=== PATIENT | female | born 1940 | race Caucasian/White ===

== ENCOUNTER 2016-07-21 07:53 | Day surgery (SDC) | payer MEDICARE ==
[2016-07-21 08:40] LABS: HEMATOCRIT 37.8 % (36.0-47.0); HGB HCT DIFFERENCE 1.2; MEAN CORPUSCULAR HEMOGLOBIN 31.1 pg (27.0-33.4); MEAN CORPUSCULAR HGB CONC 34.5 g/dL (32.0-36.0); MEAN CORPUSCULAR VOLUME 90 fl (80-97); RED BLOOD COUNT 4.19 10^6/uL (3.72-5.28); RED CELL DISTRIBUTION WIDTH 12.9 % (11.5-14.0); WHITE BLOOD COUNT 6.6 10^3/uL (4.0-10.5)
[2016-07-21] MEDS ORDERED: ONDANSETRON HCL INJ/PF 4 MG/2 ML SDV ONE (09:29)
[2016-07-21] MEDS ORDERED: NALOXONE HCL INJ/PF 0.4 MG/1 ML SDV ONE (09:29)
[2016-07-21] MEDS ORDERED: PROMETHAZINE HCL INJ 25 MG/1 ML VIAL ONE (09:29)
[2016-07-21] MEDS ORDERED: FENTANYL CITRATE INJ/PF 100 MCG/2 ML AMPUL ONE (09:30)
[2016-07-21] MEDS ORDERED: EPINEPHRINE INJ 1 MG/10 ML DISP.SYRIN ONE (09:31)
[2016-07-21] MEDS ORDERED: GLUCAGON,HUMAN RECOMB 1 MG INJ ONE (09:31)
[2016-07-21] MEDS ORDERED: FLUMAZENIL INJ 0.5 MG/5 ML VIAL IV ONE (09:31)
[2016-07-21] MEDS: MIDAZOLAM 2 MG/2 ML INJ ONE ×3 (09:42→09:55)
[2016-07-21] MEDS: FENTANYL CITRATE INJ/PF 100 MCG/2 ML AMPUL ONE ×2 (09:44→09:50)
--- NOTE | 2016-07-21 10:30 | Operative Report ---
Operative Report DATE OF SURGERY: 07/21/16 PREOPERATIVE DIAGNOSIS: Screening for colon malignancy POSTOPERATIVE DIAGNOSIS: Diverticulosis OPERATION: Colonoscopy SURGEON: HARDY VARGAS ANESTHESIA: Moderate Sedation TISSUE REMOVED OR ALTERED: None COMPLICATIONS: None ESTIMATED BLOOD LOSS: none INTRAOPERATIVE FINDINGS: Scattered rare diverticuli PROCEDURE: Informed consent was obtained. Patient was brought to the endoscopy suite and placed on the endoscopy suite table with her left side down. IV sedation with Versed and fentanyl was administered. Digital rectal exam revealed no palpable perianal masses. Endoscope was passed via the patient's anus it was fed to the cecum. Patient's sigmoid colon was markedly redundant making the procedure very difficult at this portion. She experienced the pain during this the passage of the scope and required the additional fentanyl and Versed. However by the time I reach the cecum she was very comfortable. The bowel prep was good. The visualization was good although the marked redundancy of her colon made the visualization difficult. The cecum appeared normal other than a prominent ileocecal valve. The right colon appeared normal. Transverse colon descending colon sigmoid colon and the rectum were all normal other than some scattered rare diverticuli in the sigmoid and the transverse colon. Patient tolerated procedure well with no apparent complications and was taken to the recovery area in stable condition. Recommend repeat colonoscopy in 10 years. Sooner if she has any symptoms.
--- NOTE | 2016-07-21 10:33 | PDOC DISCHARGE SUMMARY ---
Discharge Summary (SDC) - Discharge Final Diagnosis: Diverticuli of the colon. Date of Surgery: 07/21/16 Discharge Date: 07/21/16 Condition: Good Treatment or Instructions: Underwent colonoscopy. October discharge the patient home when met discharge criteria. Follow-up with me in 2 weeks. Discharge Diet: As Tolerated Discharge Activity: Activity As Tolerated Report the Following to Your Physician Immediately: Fever over 101 Degrees, Unusual Bleeding Other Items to Report to MD: severe abdominal pain
[2016-07-21 11:10] VITALS: BP 118/61
== END 2016-07-21 11:15 | disposition home or self-care (01) ==
LOC: END 07:53
PROVIDERS: ATTEND Surgery
PROC: 0DJD8ZZ Inspection of Lower Intestinal Tract, Via Natural or Artificial Opening Endoscopic (ICD-10-PCS; principal; 2016-07-21 09:30)
DX: Z12.11 Encounter for screening for malignant neoplasm of colon (principal); K57.30 Diverticulosis of large intestine without perforation or abscess without bleeding; I10 Essential (primary) hypertension; E05.90 Thyrotoxicosis, unspecified without thyrotoxic crisis or storm; I51.9 Heart disease, unspecified; G62.9 Polyneuropathy, unspecified; E89.0 Postprocedural hypothyroidism; Z79.899 Other long term (current) drug therapy; Z88.0 Allergy status to penicillin; Z85.828 Personal history of other malignant neoplasm of skin; Z87.19 Personal history of other diseases of the digestive system; Z79.1 Long term (current) use of non-steroidal anti-inflammatories (NSAID)
CPT/HCPCS: 36415; 85027; G0121; J2250; J3010; 45378; J0171; J1610; J2310; J2405; J2550; J3490

== ENCOUNTER → 2016-12-10 | Outpatient (CLI) | payer MEDICARE ==
[2016-12-10 09:24] LABS: ABSOLUTE LYMPHOCYTES (AUTO) 1.3 10^3/uL (0.5-4.7); ABSOLUTE MONOCYTES (AUTO) 0.6 10^3/uL (0.1-1.4); BASOPHILS % (AUTO) 0.4 % (0-2); HEMATOCRIT 39.1 % (36.0-47.0); HEMOGLOBIN 13.1 g/dL (12.0-15.5); HGB HCT DIFFERENCE 0.2; LYMPHOCYTES % (AUTO) 22.4 % (13-45); MEAN CORPUSCULAR HEMOGLOBIN 30.9 pg (27.0-33.4); MEAN CORPUSCULAR HGB CONC 33.6 g/dL (32.0-36.0); MEAN CORPUSCULAR VOLUME 92 fl (80-97); MONOCYTES % (AUTO) 9.6 % (3-13); RED BLOOD COUNT 4.24 10^6/uL (3.72-5.28); RED CELL DISTRIBUTION WIDTH 12.8 % (11.5-14.0); SEGMENTED NEUTROPHILS % (AUTO) 67.6 % (42-78)
[2016-12-10 09:50] LABS: ALANINE AMINOTRANSFERASE 47 U/L (9-52); ALBUMIN 4.3 g/dL (3.5-5.0); ALKALINE PHOSPHATASE 70 U/L (38-126); ANION GAP 12 (5-19); ASPARTATE AMINO TRANSFERASE 29 U/L (14-36); BILIRUBIN,DIRECT 0.4 mg/dL (0.0-0.4); BILIRUBIN,TOTAL 0.5 mg/dL (0.2-1.3); BLOOD UREA NITROGEN 20 mg/dL (7-20); CARBON DIOXIDE 28 mmol/L (22-30); CHLORIDE 100 mmol/L (98-107); CHOLESTEROL 195.06 mg/dL (0-200); Direct HDL 57 mg/dL (>40); GLUCOSE 106 mg/dL (75-110); MAGNESIUM 1.7 mg/dL (1.6-2.3); POTASSIUM 4.1 mmol/L (3.6-5.0); SODIUM 140.4 mmol/L (137-145); TOTAL PROTEIN 7.3 g/dL (6.3-8.2); TRIGLYCERIDES 174 mg/dL (<150)
[2016-12-10 10:01] LABS: DIRECT LDL 108 mg/dL (<100)
[2016-12-10 10:07] LABS: VLDL CHOLESTEROL 34.8 mg/dL (10-31)
== END ==
LOC: OD 08:44
PROVIDERS: ATTEND Internal Medicine
DX: I10 Essential (primary) hypertension (principal); E03.9 Hypothyroidism, unspecified; R53.82 Chronic fatigue, unspecified; E78.5 Hyperlipidemia, unspecified; G62.9 Polyneuropathy, unspecified
CPT/HCPCS: 36415; 80053; 80061; 83735; 84443; 85025

== ENCOUNTER → 2016-12-15 | Outpatient (CLI) | payer MEDICARE ==
--- NOTE | 2016-12-16 08:39 | WOMENS IMAGING REPORT ---
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 LIMITATIONS: None. FINDINGS: LUMBAR SPINE: The bone mineral density (BMD) measured from L1-L4 in the AP projection correlates with a T-score of -0.5, which is normal as defined by the World Health Organization. HIP: The bone mineral density (BMD) measured in the left hip correlates with a T-score of 0.0, which is no rmal as defined by the World Health Organization. IMPRESSION: 1. LUMBAR SPINE: Normal 2. HIP: Normal COMMENT: The World Health Organization defines low BMD as follows: T-score: Normal: Greater than -1.0 Osteopenia: Between -1.0 and -2.5 Osteoporosis: Less than -2.5 without fractures Established osteoporosis: Less than -2.5 with fractures In general, you may wish to consider: Diagnosis Treatment Follow-up DEXA Normal BMD Prevention 2-3 years Osteopenia Prevention/Therapy 1-2 years Osteoporosis Therapy Yearly TECHNICAL DOCUMENTATION: JOB ID: [id number] [employer]- All Rights Reserved
== END ==
LOC: WI 13:11
PROVIDERS: ATTEND Internal Medicine
DX: M81.0 Age-related osteoporosis without current pathological fracture (principal)
CPT/HCPCS: 77080

== ENCOUNTER 2018-01-28 11:38 | Emergency (ER) | payer OTHER, MEDICARE ==
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
[2018-01-28] MEDS ORDERED: ACETAMINOPHEN 325 MG TABLET PO ONE (14:26)
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
[2018-01-28] MEDS ORDERED: IBUPROFEN 800 MG TABLET PO ONE (15:59)
[2018-01-28 16:06] VITALS: BP 136/73
--- NOTE | 2018-01-29 00:09 | EKG REPORT ---
SEVERITY:- ABNORMAL ECG - SINUS RHYTHM LEFT BUNDLE BRANCH BLOCK : Confirmed by: Nita Thompson MD 29-Jan-2018 00:08:54
== END 2018-01-28 16:17 | disposition home or self-care (01) ==
LOC: ER 11:38
DX: S22.22XA Fracture of body of sternum, initial encounter for closed fracture (principal); V47.0XXA Car driver injured in collision with fixed or stationary object in nontraffic accident, initial encounter; Y92.481 Parking lot as the place of occurrence of the external cause; I44.7 Left bundle-branch block, unspecified; I10 Essential (primary) hypertension; Z88.0 Allergy status to penicillin
CPT/HCPCS: 71046; 93005; 93010; 99284

== ENCOUNTER → 2018-10-12 | Outpatient (CLI) | payer MEDICARE ==
[2018-10-12 10:26] LABS: ABSOLUTE LYMPHOCYTES (AUTO) 1.3 10^3/uL (0.5-4.7); ABSOLUTE MONOCYTES (AUTO) 0.5 10^3/uL (0.1-1.4); ABSOLUTE NEUT (AUTO) 3.4 10^3/uL (1.7-8.2); BASOPHILS % (AUTO) 0.6 % (0-2); EOSINOPHILS % (AUTO) 0.1 % (0-6); HEMATOCRIT 37.4 % (36.0-47.0); HEMOGLOBIN 13.4 g/dL (12.0-15.5); MEAN CORPUSCULAR HEMOGLOBIN 31.4 pg (27.0-33.4); MEAN CORPUSCULAR HGB CONC 35.8 g/dL (32.0-36.0); MEAN CORPUSCULAR VOLUME 88 fl (80-97); MONOCYTES % (AUTO) 9.5 % (3-13); PLATELET COUNT 237 10^3/uL (150-450); RED BLOOD COUNT 4.27 10^6/uL (3.72-5.28); RED CELL DISTRIBUTION WIDTH 12.9 % (11.5-14.0); SEGMENTED NEUTROPHILS % (AUTO) 64.8 % (42-78); TOTAL CELLS COUNTED % (AUTO) 100 %; WHITE BLOOD COUNT 5.2 10^3/uL (4.0-10.5)
[2018-10-12 11:05] LABS: ALANINE AMINOTRANSFERASE 31 U/L (9-52); ALBUMIN 4.2 g/dL (3.5-5.0); ALKALINE PHOSPHATASE 65 U/L (38-126); ANION GAP 7 (5-19); ASPARTATE AMINO TRANSFERASE 26 U/L (14-36); BILIRUBIN,DIRECT 0.2 mg/dL (0.0-0.4); BILIRUBIN,TOTAL 0.4 mg/dL (0.2-1.3); BLOOD UREA NITROGEN 17 mg/dL (7-20); CALCIUM 9.7 mg/dL (8.4-10.2); CARBON DIOXIDE 32 mmol/L (22-30); CHLORIDE 99 mmol/L (98-107); CHOLESTEROL 155.14 mg/dL (0-200); GLUCOSE 114 mg/dL (75-110); POTASSIUM 3.6 mmol/L (3.6-5.0); SODIUM 138.3 mmol/L (137-145); TOTAL PROTEIN 7.1 g/dL (6.3-8.2); TRIGLYCERIDES 194 mg/dL (<150)
[2018-10-12 11:16] LABS: DIRECT LDL 79 mg/dL (<100)
[2018-10-12 11:18] LABS: VLDL CHOLESTEROL 38.8 mg/dL (10-31)
== END ==
LOC: OD 08:45
PROVIDERS: ATTEND Internal Medicine
DX: K21.9 Gastro-esophageal reflux disease without esophagitis (principal); I10 Essential (primary) hypertension; R53.83 Other fatigue
CPT/HCPCS: 36415; 80053; 80061; 84443; 85025

== ENCOUNTER → 2018-11-29 | Outpatient (CLI) | payer MEDICARE ==
[2018-11-29 09:56] LABS: ABSOLUTE LYMPHOCYTES (AUTO) 1.4 10^3/uL (0.5-4.7); ABSOLUTE MONOCYTES (AUTO) 0.4 10^3/uL (0.1-1.4); ABSOLUTE NEUT (AUTO) 3.7 10^3/uL (1.7-8.2); BASOPHILS % (AUTO) 0.6 % (0-2); EOSINOPHILS % (AUTO) 0.1 % (0-6); HEMATOCRIT 39.2 % (36.0-47.0); HEMOGLOBIN 13.5 g/dL (12.0-15.5); LYMPHOCYTES % (AUTO) 24.7 % (13-45); MEAN CORPUSCULAR HEMOGLOBIN 30.5 pg (27.0-33.4); MEAN CORPUSCULAR HGB CONC 34.4 g/dL (32.0-36.0); MEAN CORPUSCULAR VOLUME 89 fl (80-97); MONOCYTES % (AUTO) 8.1 % (3-13); PLATELET COUNT 241 10^3/uL (150-450); RED BLOOD COUNT 4.42 10^6/uL (3.72-5.28); RED CELL DISTRIBUTION WIDTH 13.1 % (11.5-14.0); SEGMENTED NEUTROPHILS % (AUTO) 66.5 % (42-78); TOTAL CELLS COUNTED % (AUTO) 100 %; WHITE BLOOD COUNT 5.5 10^3/uL (4.0-10.5)
[2018-11-29 10:30] LABS: ALANINE AMINOTRANSFERASE 31 U/L (9-52); ALBUMIN 4.3 g/dL (3.5-5.0); ALKALINE PHOSPHATASE 68 U/L (38-126); ANION GAP 12 (5-19); ASPARTATE AMINO TRANSFERASE 27 U/L (14-36); BILIRUBIN,DIRECT 0.3 mg/dL (0.0-0.4); BILIRUBIN,TOTAL 0.5 mg/dL (0.2-1.3); BLOOD UREA NITROGEN 15 mg/dL (7-20); CALCIUM 9.8 mg/dL (8.4-10.2); CARBON DIOXIDE 32 mmol/L (22-30); CHLORIDE 96 mmol/L (98-107); CHOLESTEROL 169.77 mg/dL (0-200); GLUCOSE 109 mg/dL (75-110); POTASSIUM 3.7 mmol/L (3.6-5.0); SODIUM 140.4 mmol/L (137-145); TOTAL PROTEIN 7.1 g/dL (6.3-8.2); TRIGLYCERIDES 205 mg/dL (<150)
[2018-11-29 10:41] LABS: DIRECT LDL 88 mg/dL (<100)
== END ==
LOC: OD 08:34
PROVIDERS: ATTEND Internal Medicine
DX: K21.9 Gastro-esophageal reflux disease without esophagitis (principal); I10 Essential (primary) hypertension; R53.83 Other fatigue
CPT/HCPCS: 36415; 80053; 80061; 84443; 85025

== ENCOUNTER → 2019-01-27 | Outpatient (CLI) | payer MEDICARE | LOC: OD 08:22 | PROVIDERS: ATTEND Internal Medicine | DX: E03.9 Hypothyroidism, unspecified (principal) | CPT/HCPCS: 36415; 84443 ==

== ENCOUNTER → 2019-03-27 | Outpatient (CLI) | payer MEDICARE | LOC: OD 08:59 | PROVIDERS: ATTEND Internal Medicine | DX: E03.9 Hypothyroidism, unspecified (principal) | CPT/HCPCS: 36415; 84443 ==

== ENCOUNTER → 2019-04-26 | Outpatient (CLI) | payer MEDICARE | LOC: OD 08:21 | PROVIDERS: ATTEND Internal Medicine | DX: E03.9 Hypothyroidism, unspecified (principal) | CPT/HCPCS: 36415; 84443 ==

== ENCOUNTER → 2019-05-23 | Outpatient (CLI) | payer MEDICARE | LOC: OD 09:27 | PROVIDERS: ATTEND Internal Medicine | DX: E03.9 Hypothyroidism, unspecified (principal) | CPT/HCPCS: 36415; 84443 ==

== ENCOUNTER → 2019-12-05 | Outpatient (CLI) | payer MEDICARE ==
[2019-12-05 09:32] LABS: ABSOLUTE LYMPHOCYTES (AUTO) 1.3 10^3/uL (0.5-4.7); ABSOLUTE MONOCYTES (AUTO) 0.6 10^3/uL (0.1-1.4); ABSOLUTE NEUT (AUTO) 6.1 10^3/uL (1.7-8.2); BASOPHILS % (AUTO) 0.5 % (0-2); HEMATOCRIT 38.9 % (36.0-47.0); HEMOGLOBIN 13.5 g/dL (12.0-15.5); LYMPHOCYTES % (AUTO) 15.8 % (13-45); MEAN CORPUSCULAR HEMOGLOBIN 31.3 pg (27.0-33.4); MEAN CORPUSCULAR HGB CONC 34.8 g/dL (32.0-36.0); MEAN CORPUSCULAR VOLUME 90 fl (80-97); MONOCYTES % (AUTO) 7.8 % (3-13); PLATELET COUNT 249 10^3/uL (150-450); RED BLOOD COUNT 4.32 10^6/uL (3.72-5.28); RED CELL DISTRIBUTION WIDTH 13.2 % (11.5-14.0); SEGMENTED NEUTROPHILS % (AUTO) 75.9 % (42-78); TOTAL CELLS COUNTED % (AUTO) 100 %
[2019-12-05 09:56] LABS: ALBUMIN 4.5 g/dL (3.5-5.0); ALKALINE PHOSPHATASE 69 U/L (38-126); ANION GAP 8 (5-19); ASPARTATE AMINO TRANSFERASE 24 U/L (14-36); BILIRUBIN,TOTAL 0.5 mg/dL (0.2-1.3); BLOOD UREA NITROGEN 16 mg/dL (7-20); CARBON DIOXIDE 32 mmol/L (22-30); CHLORIDE 97 mmol/L (98-107); CHOLESTEROL 154.24 mg/dL (0-200); GLUCOSE 108 mg/dL (75-110); TOTAL PROTEIN 7.3 g/dL (6.3-8.2); TRIGLYCERIDES 187 mg/dL (<150)
[2019-12-05 10:07] LABS: DIRECT LDL 74 mg/dL (<100)
[2019-12-05 10:13] LABS: VLDL CHOLESTEROL 37.4 mg/dL (10-31)
== END ==
LOC: OD 08:28
PROVIDERS: ATTEND Internal Medicine
DX: I10 Essential (primary) hypertension (principal); E78.5 Hyperlipidemia, unspecified; E03.9 Hypothyroidism, unspecified; R53.83 Other fatigue
CPT/HCPCS: 36415; 80053; 80061; 84443; 85025